=== PATIENT | male | born 1960 | race Caucasian/White ===

== ENCOUNTER 2018-05-08 08:03 | Emergency (ER) | payer OTHER ==
[2018-05-08 08:12] VITALS: RESP 18
[2018-05-08] MEDS ORDERED: Sodium Chloride 0.9% 1,000 ML IV STA (09:01)
[2018-05-08 09:15] LABS: BASO # 0.1 K/uL (0.0-0.2); BASO % 1.4 % (0.0-2.0); EOS # 0.2 K/uL (0.0-0.7); EOS % 6.2 % (0.0-4.0); LYMPH # 0.9 K/uL (1.0-4.3); MEAN CELL VOLUME 92.5 fL (80.0-94.0); MEAN CORPUSCULAR HEMOGLOBIN 31.6 pg (27.0-31.0); MEAN CORPUSCULAR HGB CONC 34.1 g/dL (33.0-37.0); MEAN PLATELET VOLUME 7.5 fL (7.2-11.7); MONO # 0.3 K/uL (0.0-0.8); MONO % 8.8 % (0.0-10.0); NEUT # 2.3 K/uL (1.8-7.0); NEUT % 59.6 % (50.0-75.0); NRBC % 0.1 % (0.0-2.0); RBC 4.76 Mil/uL (4.40-5.90); RED CELL DISTRIBUTION WIDTH 13.3 % (11.5-14.5); WHITE BLOOD COUNT 3.8 K/uL (4.8-10.8)
[2018-05-08 09:43] LABS: ALB/GLOB RATIO 1.3 (1.0-2.1); ALBUMIN 4.2 g/dL (3.5-5.0); ALT/SGPT 30 U/L (21-72); AST/SGOT 27 U/L (17-59); BLOOD UREA NITROGEN 16 mg/dL (9-20); CALCIUM 8.7 mg/dl (8.6-10.4); GFR NON-AFRICAN AMERICAN > 60
--- NOTE | 2018-05-08 09:54 | C.PDOC ---
History Of Present Illness 57 y/o M c no PMHx p/w R calf rash x 1 week. Patient states he suspected he was bit by a bug on the R calf 1 week ago and had 4 or 5 spots there, which he has been scratching. He states that since then, the area has become more eryth ematous with areas of skin breakdown and burning. Denies fever, chills, dyspnea, chest pain, nausea, vomiting, trauma. Time Seen by Provider: 05/08/18 08:32 Chief Complaint (Nursing): Abnormal Skin Integrity Past Medical History Vital Signs: Last Vital Signs Temp 98.7 F 05/08/18 08:07 Pulse 79 05/08/18 08:07 Resp 18 05/08/18 08:07 BP 172/90 H 05/08/18 08:07 Pulse Ox 100 05/08/18 08:07 Family History: States: No Known Family Hx - Social History Hx Alcohol Use: No Hx Substance Use: No Review Of Systems Except As Marked, All Systems Reviewed And Found Negative. Constitutional: Negative for: Fever Cardiovascular: Negative for: Chest Pain Physical Exam - Physical Exam Additional Physical Exam Comments: Gen: NAD Head: NC/AT Eyes: PERRL ENT: MMM Neck: Supple Chest: No tenderness CV: Regular rate. DP Pulse 2+ Lungs: CTA b/l Abd: Soft, NT Back: No CVA tenderness Extremities: FROM x 4 Skin: R calf with area of erythema, excoriations, superficial skin breakdown, small amount of discharge, not purulent. No tenderness outside area of erythema. No crepitus. Neuro: Alert, no focal deficit ED Course And Treatment - Laboratory Results Result Diagrams: 05/08/18 09:10 05/08/18 09:10 O2 Sat by Pulse Oximetry: 100 Medical Decision Making Medical Decision Making: Patient offered admission but he refused. IV antibiotics administered and prescribed. Instructed to have wound checked in 2-3 days and to return to ED immediately for worsening redness, pain, swelling, fever, discharge, or any other problem. Disposition - Disposition Disposition: HOME/ ROUTINE Disposition Time: 09:54 Condition: STABLE Prescriptions: Doxycycline Monohydrate [Mondoxyne Nl] 100 mg PO BID #19 capsule Instructions: Cellulitis (Skin Infection), Adult (DC) Forms: [employer] (Gabonese) - Clinical Impression Clinical Impression: Cellulitis
[2018-05-08 10:31] VITALS: BP 150/90; PULSE 71; TEMP 98; O2SAT 96
--- NOTE | 2018-05-08 10:31 | RAD ---
Date of service: 05/08/2018 PROCEDURE: Radiographs of the right tibia and fibula. HISTORY: R calf infection COMPARISON: None available TECHNIQUE: Frontal and lateral views obtained. FINDINGS: BONES: No fracture or destructive lesion. No periosteal reaction to suggest osteomyelitis suggested. JOINT SPACES: Tibial spine spurring. Anterior patellar cortical spurring/are quadriceps insertional enthesophyte. Knee joint spaces appear narrowed on these nonweightbearing views. OTHER FINDINGS: Over the proximal 1/2 posterior soft tissues there is subcutaneous reticulated edema this may relate to edema associated with an insect bite and/or cellulitis.. No gas-forming cellulitis seen. IMPRESSION: No osteomyelitis or lytic pathology. Posterior lower extremity subcutaneous reticulated edema. No gas-forming cellulitis. No radiopaque foreign body noted
== END 2018-05-08 10:34 | disposition home or self-care (01) ==
LOC: C.ER 08:03
DX: L03.115 Cellulitis of right lower limb (principal)
CPT/HCPCS: 73590; 80053; 85025; 87040; 96365; 99284; J7030